=== PATIENT | male | born 1965 | race Caucasian/White ===

== ENCOUNTER 2021-07-30 09:20 | Emergency (ER) | payer BC ==
[2021-07-30 17:01] LABS: SARS-CoV-2 PCR by NAA DETECTED (NotDetected)
== END 2021-07-30 10:00 | disposition home or self-care (01) ==
LOC: BURERS 09:20
DX: U07.1 COVID-19 (principal); I10 Essential (primary) hypertension; Z87.891 Personal history of nicotine dependence
CPT/HCPCS: 87804; 99283; U0003; U0005